=== PATIENT | female | born 1980 | race Two or more races ===

== ENCOUNTER 2019-03-14 09:50 | Day surgery (SDC) | payer OTHER ==
[~2019-03-14 09:50] MED LIST: INVOKAMET 50-51 EACH PO; LOSARTAN-HCTZ1 EACH PO; [UNRECOGNIZED DRUG - OTHER]
== END 2019-03-14 16:11 | disposition home or self-care (01) ==
LOC: CIR.AMB 09:50
DX: K62.4 Stenosis of anus and rectum (principal); K60.1 Chronic anal fissure

== ENCOUNTER 2019-08-24 05:59 | Day surgery (SDC) | payer OTHER | END 2019-08-24 10:30 | disposition home or self-care (01) | LOC: AMB-ENDOS 05:59 → CIR.AMB 10:00 → AMB-ENDOS 10:00 | DX: K62.89 Other specified diseases of anus and rectum (principal); K64.1 Second degree hemorrhoids; Z12.11 Encounter for screening for malignant neoplasm of colon ==